=== PATIENT | female | born 1955 | race Caucasian/White ===

== ENCOUNTER 2021-09-26 09:23 | Day surgery (SDC) | payer OTHER ==
[2021-09-26 10:24] VITALS: BMI 20.1
[2021-09-26] MEDS ORDERED: KETAMINE HCL 500 MG/10 ML VIAL ONE (11:25)
[2021-09-26 11:58] VITALS: TEMP 97.3
[2021-09-26 13:23] VITALS: BP 112/61; PULSE 66
== END 2021-09-26 13:00 ==
LOC: FECT 09:23
PROVIDERS: ATTEND Psychiatry & Neurology Psychiatry
PROC: GZB4ZZZ Other Electroconvulsive Therapy (ICD-10-PCS; principal; 2021-09-26 11:38)
DX: F31.9 Bipolar disorder, unspecified (principal)
CPT/HCPCS: 90870; 94760

== ENCOUNTER 2021-09-27 06:14 | Day surgery (SDC) | payer OTHER ==
[2021-09-26 13:46] VITALS: BMI 20.1
[2021-09-27] MEDS ORDERED: KETAMINE HCL 500 MG/10 ML VIAL ONE (07:27)
[2021-09-27 08:04] VITALS: TEMP 97.7
[2021-09-27] MEDS ORDERED: ONDANSETRON 4 MG/2 ML VIAL IVPUSH PRN (09:24)
[2021-09-27 10:03] VITALS: BP 112/61; PULSE 56
[2021-09-28 18:08] LABS: SARS-CoV-2 NAA Not Detected (Not Detected)
== END 2021-09-27 09:45 ==
LOC: FECT 06:14
PROVIDERS: ATTEND Psychiatry & Neurology Psychiatry
PROC: GZB4ZZZ Other Electroconvulsive Therapy (ICD-10-PCS; principal; 2021-09-27 07:41)
DX: F31.9 Bipolar disorder, unspecified (principal)
CPT/HCPCS: 90870; 94760; C9803; U0003; U0005

== ENCOUNTER 2021-09-30 08:45 | Day surgery (SDC) | payer OTHER ==
[2021-09-26 14:16] VITALS: BMI 20.1
[2021-09-30] MEDS ORDERED: KETAMINE HCL 500 MG/10 ML VIAL ONE (09:38)
[2021-09-30 10:04] VITALS: TEMP 97.5
[2021-09-30 11:02] VITALS: BP 102/62; PULSE 62
[2021-10-01 14:09] LABS: SARS-CoV-2 NAA Not Detected (Not Detected)
== END 2021-09-30 11:55 ==
LOC: FECT 08:45
PROVIDERS: ATTEND Psychiatry & Neurology Psychiatry
PROC: GZB4ZZZ Other Electroconvulsive Therapy (ICD-10-PCS; principal; 2021-09-30 09:45)
DX: F31.62 Bipolar disorder, current episode mixed, moderate (principal)
CPT/HCPCS: 90870; 94760; C9803; U0003; U0005

== ENCOUNTER 2021-10-03 08:23 | Day surgery (SDC) | payer OTHER ==
[2021-09-27 08:12] VITALS: BMI 20.1
[2021-10-03] MEDS ORDERED: KETAMINE HCL 500 MG/10 ML VIAL ONE (09:45)
[2021-10-03 10:38] VITALS: PULSE 58; TEMP 97.8
[2021-10-03 11:01] VITALS: BP 100/61
== END 2021-10-03 11:10 | disposition home or self-care (01) ==
LOC: FECT 08:23
PROVIDERS: ATTEND Psychiatry & Neurology Psychiatry
PROC: GZB4ZZZ Other Electroconvulsive Therapy (ICD-10-PCS; principal; 2021-10-03 09:52)
DX: F31.89 Other bipolar disorder (principal)
CPT/HCPCS: 90870; 94760

== ENCOUNTER 2021-10-04 07:24 | Day surgery (SDC) | payer OTHER ==
[2021-09-27 08:31] VITALS: BMI 20.1
[2021-10-04] MEDS ORDERED: KETAMINE HCL 500 MG/10 ML VIAL ONE (08:11)
[2021-10-04 09:18] VITALS: TEMP 97.8
[2021-10-04 09:32] VITALS: BP 102/69; PULSE 61
== END 2021-10-04 09:35 ==
LOC: FECT 07:24
PROVIDERS: ATTEND Psychiatry & Neurology Psychiatry
PROC: GZB4ZZZ Other Electroconvulsive Therapy (ICD-10-PCS; principal; 2021-10-04 08:20)
DX: F31.62 Bipolar disorder, current episode mixed, moderate (principal)
CPT/HCPCS: 90870; 94760

== ENCOUNTER 2021-10-14 07:03 | Day surgery (SDC) | payer OTHER ==
[2021-10-07 17:37] VITALS: BMI 20.1
[2021-10-14] MEDS ORDERED: KETAMINE HCL 500 MG/10 ML VIAL ONE (08:13)
[2021-10-14 09:42] VITALS: BP 101/64; PULSE 57; TEMP 97.7
[2021-10-15 13:09] LABS: SARS-CoV-2 NAA Not Detected (Not Detected)
== END 2021-10-14 10:05 | disposition home or self-care (01) ==
LOC: FECT 07:03
PROVIDERS: ATTEND Psychiatry & Neurology Psychiatry
PROC: GZB4ZZZ Other Electroconvulsive Therapy (ICD-10-PCS; principal; 2021-10-14 08:30)
DX: F31.62 Bipolar disorder, current episode mixed, moderate (principal)
CPT/HCPCS: 90870; 94760; C9803-CS; U0003; U0005

== ENCOUNTER 2021-10-17 06:02 | Day surgery (SDC) | payer OTHER ==
[2021-10-17 07:09] VITALS: BMI 20.5
[2021-10-17] MEDS ORDERED: KETAMINE HCL 500 MG/10 ML VIAL ONE (07:43)
[2021-10-17 08:54] VITALS: TEMP 97.7
[2021-10-17 08:56] VITALS: BP 114/72; PULSE 66
[2021-10-18 18:08] LABS: SARS-CoV-2 NAA Not Detected (Not Detected)
== END 2021-10-17 09:15 ==
LOC: FECT 06:02
PROVIDERS: ATTEND Psychiatry & Neurology Psychiatry
PROC: GZB4ZZZ Other Electroconvulsive Therapy (ICD-10-PCS; principal; 2021-10-17 07:50)
DX: F31.9 Bipolar disorder, unspecified (principal)
CPT/HCPCS: 90870; 94760; C9803-CS; U0003; U0005

== ENCOUNTER 2021-10-18 05:50 | Day surgery (SDC) | payer OTHER ==
[2021-10-16 10:22] VITALS: BMI 20.1
[2021-10-18] MEDS ORDERED: KETAMINE HCL 500 MG/10 ML VIAL ONE (07:07)
[2021-10-18 08:38] VITALS: PULSE 58; TEMP 97.8
[2021-10-18 08:48] VITALS: BP 99/69
== END 2021-10-18 09:15 | disposition home or self-care (01) ==
LOC: FECT 05:50
PROVIDERS: ATTEND Psychiatry & Neurology Psychiatry
PROC: GZB4ZZZ Other Electroconvulsive Therapy (ICD-10-PCS; principal; 2021-10-18 07:30)
DX: F31.62 Bipolar disorder, current episode mixed, moderate (principal)
CPT/HCPCS: 90870; 94760

== ENCOUNTER 2021-10-22 07:40 | Day surgery (SDC) | payer OTHER ==
[2021-10-15 10:55] VITALS: BMI 20.1
[2021-10-22] MEDS ORDERED: KETAMINE HCL 500 MG/10 ML VIAL ONE (09:27)
[2021-10-22 10:41] VITALS: PULSE 62; TEMP 97.5
[2021-10-22] MEDS ORDERED: ONDANSETRON 4 MG/2 ML VIAL IVPUSH PRN (11:37)
[2021-10-22] MEDS ORDERED: LACTATED RINGERS SOLUTION 1,000 ML IV SCH (11:45)
[2021-10-22 11:59] VITALS: BP 108/75
[2021-10-23 15:08] LABS: SARS-CoV-2 NAA Not Detected (Not Detected)
== END 2021-10-22 11:15 | disposition home or self-care (01) ==
LOC: FECT 07:40
PROVIDERS: ATTEND Psychiatry & Neurology Psychiatry
PROC: GZB4ZZZ Other Electroconvulsive Therapy (ICD-10-PCS; principal; 2021-10-22 09:41)
DX: F31.89 Other bipolar disorder (principal)
CPT/HCPCS: 90870; 94760; C9803-CS; U0003; U0005

== ENCOUNTER 2021-10-24 07:20 | Day surgery (SDC) | payer OTHER ==
[2021-10-15 10:58] VITALS: BMI 20.1
[2021-10-24] MEDS ORDERED: KETAMINE HCL 500 MG/10 ML VIAL ONE (08:05)
[2021-10-24 09:13] VITALS: TEMP 97.5
[2021-10-24 10:57] VITALS: BP 108/65; PULSE 59
== END 2021-10-24 10:30 | disposition home or self-care (01) ==
LOC: FECT 07:20
PROVIDERS: ATTEND Psychiatry & Neurology Psychiatry
PROC: GZB4ZZZ Other Electroconvulsive Therapy (ICD-10-PCS; principal; 2021-10-24 08:30)
DX: F31.89 Other bipolar disorder (principal)
CPT/HCPCS: 90870; 94760

== ENCOUNTER 2021-10-25 05:59 | Day surgery (SDC) | payer OTHER ==
[2021-10-21 16:05] VITALS: BMI 20.1
[2021-10-25] MEDS ORDERED: KETAMINE HCL 500 MG/10 ML VIAL ONE (07:28)
[2021-10-25 08:38] VITALS: TEMP 97.8
[2021-10-25 08:59] VITALS: BP 105/71; PULSE 58
[2021-10-26 19:08] LABS: SARS-CoV-2 NAA Not Detected (Not Detected)
== END 2021-10-25 09:03 | disposition home or self-care (01) ==
LOC: FECT 05:59
PROVIDERS: ATTEND Psychiatry & Neurology Psychiatry
PROC: GZB4ZZZ Other Electroconvulsive Therapy (ICD-10-PCS; principal; 2021-10-25 07:40)
DX: F31.9 Bipolar disorder, unspecified (principal)
CPT/HCPCS: 90870; 94760; C9803-CS; U0003; U0005

== ENCOUNTER 2021-10-28 07:17 | Day surgery (SDC) | payer OTHER ==
[2021-10-23 08:18] VITALS: BMI 20.1
[2021-10-28] MEDS ORDERED: PROPOFOL 20 ML ONE ×2 (07:45)
[2021-10-28] MEDS ORDERED: SUCCINYLCHOLINE CHLORIDE 200 MG/10 ML SYRINGE ONE (07:45)
[2021-10-28] MEDS ORDERED: KETAMINE HCL 200 MG/20 ML VIAL ONE (08:18)
[2021-10-28 09:45] VITALS: BP 112/85; PULSE 67; TEMP 98
[2021-10-29 13:07] LABS: SARS-CoV-2 NAA Not Detected (Not Detected)
== END 2021-10-28 10:25 ==
LOC: FECT 07:17
PROVIDERS: ATTEND Psychiatry & Neurology Psychiatry
PROC: GZB4ZZZ Other Electroconvulsive Therapy (ICD-10-PCS; principal; 2021-10-28 08:26)
DX: F31.62 Bipolar disorder, current episode mixed, moderate (principal)
CPT/HCPCS: 90870; 94760; C9803-CS; U0003; U0005

== ENCOUNTER → 2021-10-31 | Day surgery (SDC) | payer OTHER ==
[2021-10-28 07:31] VITALS: BMI 20.1
[~2021-10-31] MED LIST: KETAMINE HCL 500 MG/10 ML VIAL ONE
[2021-10-31 08:35] VITALS: TEMP 97.8
[2021-10-31 09:03] VITALS: BP 109/54; PULSE 59
== END | disposition home or self-care (01) ==
LOC: FECT 06:10
PROVIDERS: ATTEND Psychiatry & Neurology Psychiatry
PROC: GZB4ZZZ Other Electroconvulsive Therapy (ICD-10-PCS; principal; 2021-10-31 07:53)
DX: F31.9 Bipolar disorder, unspecified (principal)
CPT/HCPCS: 90870; 94760

== ENCOUNTER 2021-11-01 05:55 | Day surgery (SDC) | payer OTHER ==
[2021-10-25 17:47] VITALS: BMI 20.1
[2021-11-01 06:55] VITALS: TEMP 97.8
[2021-11-01] MEDS ORDERED: KETAMINE HCL 500 MG/10 ML VIAL ONE (07:22)
[2021-11-01 08:49] VITALS: BP 107/69; PULSE 61
[2021-11-02 13:07] LABS: SARS-CoV-2 NAA Not Detected (Not Detected)
== END 2021-11-01 08:45 | disposition home or self-care (01) ==
LOC: FECT 05:55
PROVIDERS: ATTEND Psychiatry & Neurology Psychiatry
PROC: GZB4ZZZ Other Electroconvulsive Therapy (ICD-10-PCS; principal; 2021-11-01 07:29)
DX: F31.9 Bipolar disorder, unspecified (principal)
CPT/HCPCS: 90870; 94760; C9803-CS; U0003; U0005

== ENCOUNTER 2021-11-04 06:47 | Day surgery (SDC) | payer OTHER ==
[2021-10-29 07:33] VITALS: BMI 20.1
[2021-11-04 10:15] VITALS: TEMP 97.8
[2021-11-04 11:19] VITALS: BP 104/61; PULSE 61
[2021-11-05 13:07] LABS: SARS-CoV-2 NAA Not Detected (Not Detected)
== END 2021-11-04 11:21 | disposition home or self-care (01) ==
LOC: FECT 06:47
PROVIDERS: ATTEND Psychiatry & Neurology Psychiatry
PROC: GZB4ZZZ Other Electroconvulsive Therapy (ICD-10-PCS; principal; 2021-11-04 09:17)
DX: F31.62 Bipolar disorder, current episode mixed, moderate (principal)
CPT/HCPCS: 90870; 94760; C9803-CS; U0003; U0005

== ENCOUNTER 2021-11-07 06:20 | Day surgery (SDC) | payer OTHER ==
[2021-11-05 11:34] VITALS: BMI 20.1
[2021-11-07 10:59] VITALS: TEMP 98
[2021-11-07 11:15] VITALS: BP 103/56; PULSE 66
[2021-11-08 14:09] LABS: SARS-CoV-2 NAA Not Detected (Not Detected)
== END 2021-11-07 11:10 ==
LOC: FECT 06:20
PROVIDERS: ATTEND Psychiatry & Neurology Psychiatry
PROC: GZB4ZZZ Other Electroconvulsive Therapy (ICD-10-PCS; principal; 2021-11-07 10:01)
DX: F31.9 Bipolar disorder, unspecified (principal)
CPT/HCPCS: 90870; 94760; C9803-CS; U0003; U0005

== ENCOUNTER 2021-11-11 05:58 | Day surgery (SDC) | payer OTHER ==
[2021-11-06 10:49] VITALS: BMI 20.1
[2021-11-11 09:35] VITALS: TEMP 97.4
[2021-11-11 10:08] VITALS: BP 112/61; PULSE 77
[2021-11-12 12:11] LABS: SARS-CoV-2 NAA Not Detected (Not Detected)
== END 2021-11-11 10:05 ==
LOC: FECT 05:58
PROVIDERS: ATTEND Psychiatry & Neurology Psychiatry
PROC: GZB4ZZZ Other Electroconvulsive Therapy (ICD-10-PCS; principal; 2021-11-11 08:43)
DX: F31.62 Bipolar disorder, current episode mixed, moderate (principal)
CPT/HCPCS: 90870; 94760; C9803-CS; U0003; U0005

== ENCOUNTER 2021-11-14 08:05 | Day surgery (SDC) | payer OTHER ==
[2021-11-07 15:11] VITALS: BMI 20.1
[2021-11-14 10:29] VITALS: TEMP 97.8
[2021-11-14 10:31] VITALS: BP 110/66; PULSE 66
[2021-11-15 11:08] LABS: SARS-CoV-2 NAA Not Detected (Not Detected)
== END 2021-11-14 12:00 ==
LOC: FECT 08:05
PROVIDERS: ATTEND Psychiatry & Neurology Psychiatry
PROC: GZB4ZZZ Other Electroconvulsive Therapy (ICD-10-PCS; principal; 2021-11-14 09:30)
DX: F31.9 Bipolar disorder, unspecified (principal)
CPT/HCPCS: 90870; 94760; C9803-CS; U0003; U0005

== ENCOUNTER 2021-11-18 06:14 | Day surgery (SDC) | payer OTHER ==
[2021-11-15 11:31] VITALS: BMI 20.1
[2021-11-18 10:13] VITALS: TEMP 98
[2021-11-18 10:17] VITALS: BP 100/60; PULSE 61
[2021-11-19 15:09] LABS: SARS-CoV-2 NAA Not Detected (Not Detected)
== END 2021-11-18 11:00 ==
LOC: FECT 06:14
PROVIDERS: ATTEND Psychiatry & Neurology Psychiatry
PROC: GZB4ZZZ Other Electroconvulsive Therapy (ICD-10-PCS; principal; 2021-11-18 08:52)
DX: F31.62 Bipolar disorder, current episode mixed, moderate (principal)
CPT/HCPCS: 90870; 94760; C9803-CS; U0003; U0005

== ENCOUNTER 2021-11-21 08:20 | Day surgery (SDC) | payer OTHER ==
[2021-11-12 11:33] VITALS: BMI 20.1
[2021-11-21 09:38] VITALS: TEMP 98.4
[2021-11-21 11:59] VITALS: BP 110/61; PULSE 62
[2021-11-22 20:12] LABS: SARS-CoV-2 NAA Not Detected (Not Detected)
== END 2021-11-21 11:50 ==
LOC: FECT 08:20
PROVIDERS: ATTEND Psychiatry & Neurology Psychiatry
PROC: GZB4ZZZ Other Electroconvulsive Therapy (ICD-10-PCS; principal; 2021-11-21 09:19)
DX: F31.9 Bipolar disorder, unspecified (principal)
CPT/HCPCS: 90870; 94760; C9803-CS; U0003; U0005

== ENCOUNTER 2021-11-25 07:17 | Day surgery (SDC) | payer OTHER ==
[2021-11-19 06:40] VITALS: BMI 20.1
[2021-11-25 10:38] VITALS: TEMP 98.2
[2021-11-25 10:52] VITALS: BP 111/64; PULSE 72
[2021-11-26 16:17] LABS: SARS-CoV-2 NAA Not Detected (Not Detected)
== END 2021-11-25 11:05 | disposition home or self-care (01) ==
LOC: FECT 07:17
PROVIDERS: ATTEND Psychiatry & Neurology Psychiatry
PROC: GZB4ZZZ Other Electroconvulsive Therapy (ICD-10-PCS; principal; 2021-11-25 08:55)
DX: F31.62 Bipolar disorder, current episode mixed, moderate (principal)
CPT/HCPCS: 90870; 94760; C9803-CS; U0003; U0005

== ENCOUNTER 2021-11-28 06:11 | Day surgery (SDC) | payer OTHER ==
[2021-11-25 14:34] VITALS: BMI 20.1
[2021-11-28 09:10] VITALS: TEMP 97.1
[2021-11-28 10:06] VITALS: BP 102/64; PULSE 66
[2021-11-29 12:12] LABS: SARS-CoV-2 NAA Not Detected (Not Detected)
== END 2021-11-28 10:00 ==
LOC: FECT 06:11
PROVIDERS: ATTEND Psychiatry & Neurology Psychiatry
PROC: GZB4ZZZ Other Electroconvulsive Therapy (ICD-10-PCS; principal; 2021-11-28 08:45)
DX: F31.62 Bipolar disorder, current episode mixed, moderate (principal)
CPT/HCPCS: 90870; 94760; C9803-CS; U0003; U0005

== ENCOUNTER 2021-12-02 06:12 | Day surgery (SDC) | payer OTHER ==
[2021-11-25 15:34] VITALS: BMI 20.1
[2021-12-02] MEDS ORDERED: KETAMINE HCL 500 MG/10 ML VIAL ONE (07:23)
[2021-12-02 08:22] VITALS: TEMP 97.8
[2021-12-02 09:17] VITALS: BP 104/58; PULSE 69
[2021-12-02] MEDS ORDERED: PROMETHAZINE HCL 25 MG/1 ML VIAL IVPUSH PRN (09:31)
[2021-12-02] MEDS ORDERED: LACTATED RINGERS SOLUTION 1,000 ML IV SCH (09:45)
[2021-12-03 13:13] LABS: SARS-CoV-2 NAA Not Detected (Not Detected)
== END 2021-12-02 09:00 ==
LOC: FECT 06:12
PROVIDERS: ATTEND Psychiatry & Neurology Psychiatry
PROC: GZB4ZZZ Other Electroconvulsive Therapy (ICD-10-PCS; principal; 2021-12-02 07:36)
DX: F31.62 Bipolar disorder, current episode mixed, moderate (principal)
CPT/HCPCS: 90870; 94760; C9803-CS; U0003; U0005

== ENCOUNTER 2021-12-05 06:07 | Day surgery (SDC) | payer OTHER ==
[2021-12-05 06:45] VITALS: BMI 20.1
[2021-12-05 08:48] VITALS: TEMP 97.8
[2021-12-05 08:50] VITALS: BP 106/57; PULSE 62
[2021-12-07 00:07] LABS: SARS-CoV-2 NAA Not Detected (Not Detected)
== END 2021-12-05 09:12 ==
LOC: FECT 06:07
PROVIDERS: ATTEND Psychiatry & Neurology Psychiatry
PROC: GZB4ZZZ Other Electroconvulsive Therapy (ICD-10-PCS; principal; 2021-12-05 07:51)
DX: F31.9 Bipolar disorder, unspecified (principal)
CPT/HCPCS: 90870; 94760; C9803-CS; U0003; U0005

== ENCOUNTER 2021-12-10 05:57 | Day surgery (SDC) | payer OTHER ==
[2021-12-05 09:00] VITALS: BMI 20.1
[2021-12-10] MEDS ORDERED: KETAMINE HCL 500 MG/10 ML VIAL ONE (07:52)
[2021-12-10 09:02] VITALS: TEMP 97.2
[2021-12-10 09:23] VITALS: BP 103/60; PULSE 61
[2021-12-11 15:08] LABS: SARS-CoV-2 NAA Not Detected (Not Detected)
== END 2021-12-10 09:25 ==
LOC: FECT 05:57
PROVIDERS: ATTEND Psychiatry & Neurology Psychiatry
PROC: GZB4ZZZ Other Electroconvulsive Therapy (ICD-10-PCS; principal; 2021-12-10 08:02)
DX: F31.9 Bipolar disorder, unspecified (principal)
CPT/HCPCS: 90870; 94760; C9803-CS; U0003; U0005

== ENCOUNTER 2021-12-12 06:26 | Day surgery (SDC) | payer OTHER ==
[2021-12-05 09:04] VITALS: BMI 20.1
[2021-12-12 09:25] VITALS: TEMP 97.5
[2021-12-12 09:42] VITALS: BP 108/57; PULSE 70
== END 2021-12-12 09:40 ==
LOC: FECT 06:26
PROVIDERS: ATTEND Psychiatry & Neurology Psychiatry
PROC: GZB4ZZZ Other Electroconvulsive Therapy (ICD-10-PCS; principal; 2021-12-12 08:40)
DX: F31.9 Bipolar disorder, unspecified (principal)
CPT/HCPCS: 90870; 94760; C9803-CS; U0003; U0005

== ENCOUNTER 2021-12-17 06:17 | Day surgery (SDC) | payer OTHER ==
[2021-12-11 14:10] VITALS: BMI 20.1
[2021-12-17 10:26] VITALS: TEMP 97.8
[2021-12-17 11:07] VITALS: BP 110/60; PULSE 74
== END 2021-12-17 10:55 | disposition home or self-care (01) ==
LOC: FECT 06:17
PROVIDERS: ATTEND Psychiatry & Neurology Psychiatry
PROC: GZB4ZZZ Other Electroconvulsive Therapy (ICD-10-PCS; principal; 2021-12-17 08:35)
DX: F31.62 Bipolar disorder, current episode mixed, moderate (principal)
CPT/HCPCS: 90870; 94760; C9803-CS; U0003; U0005

== ENCOUNTER 2021-12-19 08:36 | Day surgery (SDC) | payer OTHER ==
[2021-12-13 13:41] VITALS: BMI 20.1
[2021-12-19 10:39] VITALS: TEMP 97.8
[2021-12-19 11:44] VITALS: BP 114/64; PULSE 61
== END 2021-12-19 11:40 ==
LOC: FECT 08:36
PROVIDERS: ATTEND Psychiatry & Neurology Psychiatry
PROC: GZB4ZZZ Other Electroconvulsive Therapy (ICD-10-PCS; principal; 2021-12-19 10:24)
DX: F31.9 Bipolar disorder, unspecified (principal)
CPT/HCPCS: 90870; 94760; C9803-CS; U0003; U0005

== ENCOUNTER 2021-12-24 06:13 | Day surgery (SDC) | payer OTHER ==
[2021-12-23 14:56] VITALS: BMI 20.1
[2021-12-24 09:23] VITALS: TEMP 97.6
[2021-12-24 09:24] VITALS: BP 110/70; PULSE 60
== END 2021-12-24 10:45 | disposition home or self-care (01) ==
LOC: FECT 06:13
PROVIDERS: ATTEND Psychiatry & Neurology Psychiatry
PROC: GZB4ZZZ Other Electroconvulsive Therapy (ICD-10-PCS; principal; 2021-12-24 08:24)
DX: F31.9 Bipolar disorder, unspecified (principal)
CPT/HCPCS: 90870; 94760; C9803-CS; U0003; U0005

== ENCOUNTER 2021-12-26 07:12 | Day surgery (SDC) | payer OTHER ==
[2021-12-24 13:46] VITALS: BMI 20.1
[2021-12-26 10:02] VITALS: PULSE 54; TEMP 96.2
[2021-12-26 10:25] VITALS: BP 114/72
== END 2021-12-26 10:30 | disposition home or self-care (01) ==
LOC: FECT 07:12
PROVIDERS: ATTEND Psychiatry & Neurology Psychiatry
PROC: GZB4ZZZ Other Electroconvulsive Therapy (ICD-10-PCS; principal; 2021-12-26 08:55)
DX: F31.9 Bipolar disorder, unspecified (principal)
CPT/HCPCS: 90870; 94760; C9803-CS; U0003; U0005

== ENCOUNTER 2021-12-31 05:57 | Day surgery (SDC) | payer OTHER ==
[2021-12-27 10:00] VITALS: BMI 20.1
[2021-12-31] MEDS ORDERED: KETAMINE HCL 500 MG/10 ML VIAL ONE (07:55)
[2021-12-31 08:54] VITALS: TEMP 97.6
[2021-12-31 09:38] VITALS: BP 104/68; PULSE 58
== END 2021-12-31 09:40 | disposition home or self-care (01) ==
LOC: FECT 05:57
PROVIDERS: ATTEND Psychiatry & Neurology Psychiatry
PROC: GZB4ZZZ Other Electroconvulsive Therapy (ICD-10-PCS; principal; 2021-12-31 08:11)
DX: F31.62 Bipolar disorder, current episode mixed, moderate (principal)
CPT/HCPCS: 90870; 94760; C9803-CS; U0003; U0005

== ENCOUNTER 2022-01-03 05:56 | Day surgery (SDC) | payer OTHER ==
[2021-12-30 07:33] VITALS: BMI 20.1
[2022-01-03] MEDS ORDERED: KETAMINE HCL 500 MG/10 ML VIAL ONE (07:29)
[2022-01-03] MEDS ORDERED: KETOROLAC TROMETHAMINE 30 MG/1 ML VIAL ONE (07:48)
[2022-01-03] MEDS ORDERED: ONDANSETRON 4 MG/2 ML VIAL ONE (07:48)
[2022-01-03 08:37] VITALS: TEMP 98.1
[2022-01-03 08:57] VITALS: BP 112/65; PULSE 54
== END 2022-01-03 09:30 | disposition home or self-care (01) ==
LOC: FECT 05:56
PROVIDERS: ATTEND Psychiatry & Neurology Psychiatry
PROC: GZB4ZZZ Other Electroconvulsive Therapy (ICD-10-PCS; principal; 2022-01-03 07:42)
DX: F31.9 Bipolar disorder, unspecified (principal)
CPT/HCPCS: 90870; 94760; C9803-CS; U0003; U0005

== ENCOUNTER 2022-01-07 05:55 | Day surgery (SDC) | payer OTHER ==
[2021-12-31 17:17] VITALS: BMI 20.1
[2022-01-07] MEDS ORDERED: KETAMINE HCL 500 MG/10 ML VIAL ONE (08:37)
[2022-01-07] MEDS ORDERED: PROMETHAZINE HCL 25 MG/1 ML VIAL IVPUSH PRN (09:39)
[2022-01-07 09:44] VITALS: TEMP 98
[2022-01-07] MEDS ORDERED: LACTATED RINGERS SOLUTION 1,000 ML IV SCH (09:45)
[2022-01-07 09:53] VITALS: BP 102/66; PULSE 66
== END 2022-01-07 10:00 ==
LOC: FECT 05:55
PROVIDERS: ATTEND Psychiatry & Neurology Psychiatry
PROC: GZB4ZZZ Other Electroconvulsive Therapy (ICD-10-PCS; principal; 2022-01-07 08:45)
DX: F31.9 Bipolar disorder, unspecified (principal)
CPT/HCPCS: 90870; 94760; C9803-CS; U0003; U0005

== ENCOUNTER 2022-01-10 07:15 | Day surgery (SDC) | payer OTHER ==
[2022-01-01 16:05] VITALS: BMI 20.9
[2022-01-10] MEDS ORDERED: KETAMINE HCL 500 MG/10 ML VIAL ONE (08:59)
[2022-01-10] MEDS ORDERED: PROPOFOL 20 ML ONE (09:05)
[2022-01-10 09:28] VITALS: TEMP 97.7
[2022-01-10 10:20] VITALS: BP 110/60; PULSE 61
== END 2022-01-10 10:45 ==
LOC: FECT 07:15
PROVIDERS: ATTEND Psychiatry & Neurology Psychiatry
PROC: GZB4ZZZ Other Electroconvulsive Therapy (ICD-10-PCS; principal; 2022-01-10 09:12)
DX: F31.9 Bipolar disorder, unspecified (principal)
CPT/HCPCS: 90870; 94760; C9803-CS; U0003; U0005

== ENCOUNTER 2022-01-14 06:13 | Day surgery (SDC) | payer OTHER ==
[2022-01-08 11:04] VITALS: BMI 20.1
[2022-01-14] MEDS ORDERED: KETAMINE HCL 500 MG/10 ML VIAL ONE (07:53)
[2022-01-14 08:52] VITALS: TEMP 97.4
[2022-01-14 09:29] VITALS: BP 105/70; PULSE 61
== END 2022-01-14 09:15 ==
LOC: FECT 06:13
PROVIDERS: ATTEND Psychiatry & Neurology Psychiatry
PROC: GZB4ZZZ Other Electroconvulsive Therapy (ICD-10-PCS; principal; 2022-01-14 08:02)
DX: F31.9 Bipolar disorder, unspecified (principal)
CPT/HCPCS: 90870; 94760; C9803-CS; U0003; U0005

== ENCOUNTER 2022-01-17 06:41 | Day surgery (SDC) | payer OTHER ==
[2022-01-14 16:09] VITALS: BMI 20.1
[2022-01-17] MEDS ORDERED: KETAMINE HCL 500 MG/10 ML VIAL ONE (08:09)
[2022-01-17 10:54] VITALS: BP 105/65; PULSE 65; TEMP 97.9
== END 2022-01-17 10:41 ==
LOC: FECT 06:41
PROVIDERS: ATTEND Psychiatry & Neurology Psychiatry
PROC: GZB4ZZZ Other Electroconvulsive Therapy (ICD-10-PCS; principal; 2022-01-17 08:35)
DX: F31.62 Bipolar disorder, current episode mixed, moderate (principal)
CPT/HCPCS: 90870; 94760; C9803-CS; U0003; U0005

== ENCOUNTER 2022-01-28 06:36 | Day surgery (SDC) | payer OTHER ==
[2022-01-16 08:48] VITALS: BMI 20.1
[2022-01-28] MEDS ORDERED: KETOROLAC TROMETHAMINE 30 MG/1 ML VIAL ONE (09:16)
[2022-01-28] MEDS ORDERED: KETAMINE HCL 500 MG/10 ML VIAL ONE (09:17)
[2022-01-28] MEDS ORDERED: PROPOFOL 20 ML ONE (09:23)
[2022-01-28] MEDS ORDERED: ONDANSETRON 4 MG/2 ML VIAL ONE (09:23)
[2022-01-28] MEDS ORDERED: SUCCINYLCHOLINE CHLORIDE 200 MG/10 ML SYRINGE ONE (09:23)
[2022-01-28] MEDS ORDERED: LIDOCAINE HCL/PF 2% SDV 5ML VIAL ONE (09:23)
[2022-01-28 09:58] VITALS: TEMP 97.8
[2022-01-28] MEDS ORDERED: ONDANSETRON 4 MG/2 ML VIAL IVPUSH PRN (10:34)
[2022-01-28 10:46] VITALS: BP 112/61; PULSE 61
== END 2022-01-28 11:00 | disposition home or self-care (01) ==
LOC: FECT 06:36
PROVIDERS: ATTEND Psychiatry & Neurology Psychiatry
PROC: GZB4ZZZ Other Electroconvulsive Therapy (ICD-10-PCS; principal; 2022-01-28 09:29)
DX: F31.9 Bipolar disorder, unspecified (principal)
CPT/HCPCS: 90870; 94760

== ENCOUNTER 2022-02-04 06:53 | Day surgery (SDC) | payer OTHER ==
[2022-01-30 15:52] VITALS: BMI 20.1
[2022-02-04] MEDS ORDERED: KETAMINE HCL 500 MG/10 ML VIAL ONE (07:55)
[2022-02-04 08:59] VITALS: TEMP 97.3
[2022-02-04 09:24] VITALS: PULSE 61
[2022-02-04 09:51] VITALS: BP 121/61
[2022-02-04] MEDS ORDERED: ACETAMINOPHEN 325 MG TABLET (FP) PO PRN (10:02)
== END 2022-02-04 10:00 | disposition home or self-care (01) ==
LOC: FECT 06:53
PROVIDERS: ATTEND Psychiatry & Neurology Psychiatry
PROC: GZB4ZZZ Other Electroconvulsive Therapy (ICD-10-PCS; principal; 2022-02-04 08:30)
DX: F31.9 Bipolar disorder, unspecified (principal)
CPT/HCPCS: 90870; 94760

== ENCOUNTER 2022-02-11 07:05 | Day surgery (SDC) | payer OTHER ==
[2022-02-04 15:40] VITALS: BMI 20.6
[2022-02-11 07:58] VITALS: TEMP 98
[2022-02-11] MEDS ORDERED: KETOROLAC TROMETHAMINE 30 MG/1 ML VIAL ONE (08:48)
[2022-02-11] MEDS ORDERED: PROPOFOL 20 ML ONE (08:49)
[2022-02-11] MEDS ORDERED: LACTATED RINGERS SOLUTION 1,000 ML IV SCH (09:45)
[2022-02-11 10:36] VITALS: BP 102/60; PULSE 56; RESP 18
== END 2022-02-11 10:30 | disposition home or self-care (01) ==
LOC: FECT 07:05
PROVIDERS: ATTEND Psychiatry & Neurology Psychiatry
PROC: GZB4ZZZ Other Electroconvulsive Therapy (ICD-10-PCS; principal; 2022-02-11 08:56)
DX: F31.9 Bipolar disorder, unspecified (principal)
CPT/HCPCS: 90870; 94760

== ENCOUNTER 2022-02-18 07:04 | Day surgery (SDC) | payer OTHER ==
[2022-02-13 12:07] VITALS: BMI 20.6
[2022-02-18] MEDS ORDERED: KETAMINE HCL 500 MG/10 ML VIAL ONE (08:05)
[2022-02-18 09:15] VITALS: TEMP 97.8
[2022-02-18 12:27] VITALS: BP 100/56; PULSE 57; RESP 15
== END 2022-02-18 10:40 | disposition home or self-care (01) ==
LOC: FECT 07:04
PROVIDERS: ATTEND Psychiatry & Neurology Psychiatry
PROC: GZB4ZZZ Other Electroconvulsive Therapy (ICD-10-PCS; principal; 2022-02-18 09:00)
DX: F31.62 Bipolar disorder, current episode mixed, moderate (principal)
CPT/HCPCS: 90870; 94760

== ENCOUNTER 2022-02-21 07:11 | Day surgery (SDC) | payer OTHER ==
[2022-02-19 10:53] VITALS: BMI 20.6
[2022-02-21] MEDS ORDERED: KETAMINE HCL 500 MG/10 ML VIAL ONE (09:09)
[2022-02-21 09:54] VITALS: TEMP 97.3
[2022-02-21 11:41] VITALS: BP 104/75; PULSE 66; RESP 17
== END 2022-02-21 11:42 ==
LOC: FECT 07:11
PROVIDERS: ATTEND Psychiatry & Neurology Psychiatry
PROC: GZB4ZZZ Other Electroconvulsive Therapy (ICD-10-PCS; principal; 2022-02-21 09:26)
DX: F31.9 Bipolar disorder, unspecified (principal)
CPT/HCPCS: 90870; 94760

== ENCOUNTER 2022-02-25 07:02 | Day surgery (SDC) | payer OTHER ==
[2022-02-19 12:54] VITALS: BMI 20.6
[2022-02-25 07:49] VITALS: TEMP 98
[2022-02-25] MEDS ORDERED: KETAMINE HCL 500 MG/10 ML VIAL ONE (08:57)
[2022-02-25 11:23] VITALS: BP 118/56; PULSE 61; RESP 18
== END 2022-02-25 10:55 | disposition home or self-care (01) ==
LOC: FECT 07:02
PROVIDERS: ATTEND Psychiatry & Neurology Psychiatry
PROC: GZB4ZZZ Other Electroconvulsive Therapy (ICD-10-PCS; principal; 2022-02-25 09:14)
DX: F31.9 Bipolar disorder, unspecified (principal)
CPT/HCPCS: 90870; 94760

== ENCOUNTER 2022-02-28 06:51 | Day surgery (SDC) | payer OTHER ==
[2022-02-24 14:07] VITALS: BMI 20.6
[2022-02-28 10:31] VITALS: RESP 16; TEMP 97.9
[2022-02-28 10:34] VITALS: BP 115/64; PULSE 58
== END 2022-02-28 10:20 ==
LOC: FECT 06:51
PROVIDERS: ATTEND Psychiatry & Neurology Psychiatry
PROC: GZB4ZZZ Other Electroconvulsive Therapy (ICD-10-PCS; principal; 2022-02-28 08:43)
DX: F31.9 Bipolar disorder, unspecified (principal)
CPT/HCPCS: 90870; 94760

== ENCOUNTER 2022-03-04 06:49 | Day surgery (SDC) | payer OTHER ==
[2022-02-25 14:37] VITALS: BMI 20.6
[2022-03-04] MEDS ORDERED: KETAMINE HCL 500 MG/10 ML VIAL ONE (08:18)
[2022-03-04 09:27] VITALS: RESP 18; TEMP 97.8
[2022-03-04 09:49] VITALS: BP 124/69; PULSE 64
== END 2022-03-04 09:54 | disposition home or self-care (01) ==
LOC: FECT 06:49
PROVIDERS: ATTEND Psychiatry & Neurology Psychiatry
PROC: GZB4ZZZ Other Electroconvulsive Therapy (ICD-10-PCS; principal; 2022-03-04 08:25)
DX: F31.9 Bipolar disorder, unspecified (principal)
CPT/HCPCS: 90870; 94760

== ENCOUNTER 2022-03-07 05:57 | Day surgery (SDC) | payer OTHER ==
[2022-02-27 11:28] VITALS: BMI 20.6
[2022-03-07 10:22] VITALS: TEMP 97
[2022-03-07 11:01] VITALS: BP 106/60; PULSE 58; RESP 16
== END 2022-03-07 09:37 | disposition home or self-care (01) ==
LOC: FECT 05:57
PROVIDERS: ATTEND Psychiatry & Neurology Psychiatry
PROC: GZB4ZZZ Other Electroconvulsive Therapy (ICD-10-PCS; principal; 2022-03-07 07:51)
DX: F31.9 Bipolar disorder, unspecified (principal)
CPT/HCPCS: 90870; 94760

== ENCOUNTER 2022-03-11 06:18 | Day surgery (SDC) | payer OTHER ==
[2022-03-05 17:53] VITALS: BMI 20.6
[2022-03-11] MEDS ORDERED: KETAMINE HCL 500 MG/10 ML VIAL ONE (08:45)
[2022-03-11 09:21] VITALS: TEMP 97.5
[2022-03-11] MEDS ORDERED: PROMETHAZINE HCL 25 MG/1 ML VIAL IVPUSH PRN (09:22)
[2022-03-11] MEDS ORDERED: LACTATED RINGERS SOLUTION 1,000 ML IV SCH (09:30)
[2022-03-11 10:36] VITALS: RESP 16
[2022-03-11 10:40] VITALS: BP 118/72; PULSE 62
== END 2022-03-11 10:43 | disposition home or self-care (01) ==
LOC: FECT 06:18
PROVIDERS: ATTEND Psychiatry & Neurology Psychiatry
PROC: GZB4ZZZ Other Electroconvulsive Therapy (ICD-10-PCS; principal; 2022-03-11 09:03)
DX: F31.9 Bipolar disorder, unspecified (principal)
CPT/HCPCS: 90870; 93005; 94760

== ENCOUNTER 2022-07-24 06:03 | Day surgery (SDC) | payer OTHER ==
[2022-07-24 08:13] VITALS: BP 119/69; PULSE 64; RESP 16; TEMP 97.8; BMI 23.7
== END 2022-07-24 11:30 ==
LOC: FECT 06:03
PROVIDERS: ATTEND Psychiatry & Neurology Psychiatry
PROC: GZB4ZZZ Other Electroconvulsive Therapy (ICD-10-PCS; principal; 2022-07-24)
DX: F31.9 Bipolar disorder, unspecified (principal); Z53.8 Procedure and treatment not carried out for other reasons